=== PATIENT | female | born 1960 | race Caucasian/White ===

== ENCOUNTER 2018-05-13 20:32 | Emergency (ER) | payer MEDICAID ==
--- NOTE | 2018-05-13 21:52 | EDM.PDOC ---
ED HPI GENERAL MEDICAL PROBLEM - General Chief Complaint: Lower Extremity Injury/Pain Stated Complaint: HAS INFECTION/LT KNEE IS SWELLING & SOB Time Seen by Provider: 05/13/18 21:54 Source of Information: Reports: Patient History Limitations: Reports: No Limitations - History of Present Illness INITIAL COMMENTS - FREE TEXT/NARRATIVE: pt arrived with a history of a facial infection. She had a ja stud which screwed into a titanium plate. Onset: Gradual, Other ( last 3-4 days. ) Duration: Hour(s): Location: Reports: Face, Lower Extremity, Left, Generalized Associated Symptoms: Reports: Headaches Treatments SALAD MAKER: Reports: NSAIDS, Other (see below) Other Treatments SALAD MAKER: Bactrim DS Joints Pain Score (Numeric/FACES): 8 Left Posterior Knee Pain Score (Numeric/FACES): 6 - Related Data Allergies Allergy/AdvReac Type Severity Reaction Status Date / Time No Known Allergies Allergy Verified 05/13/18 21:30 Home Meds: Home Meds Citalopram Hydrobromide [Celexa] 20 mg PO DAILY 05/31/13 [History] Multivitamin [Multivitamins] 1 each PO DAILY 01/21/15 [History] Sulfamethoxazole/Trimethoprim [Bactrim Ds Tablet] 1 each PO DAILY 05/13/18 [ History] Past Medical History - Past Health History Medical/Surgical History: Denies Medical/Surgical History - Past Surgical History Other Musculoskeletal Surgeries/Procedures:: pins and screws right humerous Social & Family History - Tobacco Use Smoking Status *Q: Never Smoker Second Hand Smoke Exposure: No - Caffeine Use Caffeine Use: Reports: Coffee - Recreational Drug Use Recreational Drug Use: No Review of Systems - Review of Systems Review Of Systems: See Below Constitutional: Reports: Chills, Weakness Eyes: Reports: No Symptoms Ears: Reports: No Symptoms Nose: Reports: No Symptoms Mouth/Throat: Reports: No Symptoms, Other ( facial swellin on the left) Respiratory: Reports: No Symptoms Cardiovascular: Reports: No Symptoms GI/Abdominal: Reports: No Symptoms Genitourinary: Reports: No Symptoms Musculoskeletal: Reports: Other ( generalized muscle pain and joint pain with very severe pain in the left knee. ) Skin: Reports: No Symptoms ED EXAM, GENERAL - Physical Exam Exam: See Below Free Text/Narrative:: Pt arrived with pain in the left knee and generalized joint pain. She is not vomiting. She has pain in the facial area. Exam Limited By: No Limitations General Appearance: Alert, Moderate Distress Ears: Normal TMs Ear Exam: Right Ear: Bleeding Nose: Normal Inspection Throat/Mouth: Other ( Left cheek is swollen and red. It is tender. ) Neck: Normal Inspection, Lymphadenopathy (L) Respiratory/Chest: No Respiratory Distress Cardiovascular: Regular Rate, Rhythm GI/Abdominal: Soft, Non-Tender (Female) Exam: Deferred Rectal (Female) Exam: Deferred Back Exam: Normal Inspection Extremities: Other (left knee is swollen and she has a obvious joint effusion. She has no redness present but the knee is painful. She also feels like the rt knee is becoming painful She has not spiked a temp. ) Neurological: Alert, Oriented, Normal Cognition Course - Vital Signs Last Recorded V/S: Last Vital Signs Temp 35.6 C 05/13/18 23:51 Pulse 66 05/13/18 23:51 Resp 12 05/13/18 23:51 BP 115/55 L 05/13/18 23:51 Pulse Ox 98 05/13/18 23:51 - Orders/Labs/Meds Orders: Active Orders 24 hr Category Date Time Status Max Facial Sinus wo Cont [CT] Stat Exams 05/14/18 00:18 Taken Sinus Less 3V [CR] Stat Exams 05/13/18 22:04 Taken VL Duplex Lwr Ext Veins Ltd Lt [US] Stat Exams 05/13/18 21:52 Taken CULTURE BLOOD [BC] Urgent Lab 05/14/18 00:35 Received CULTURE BLOOD [BC] Urgent Lab 05/14/18 00:40 Received Sodium Chloride 0.9% [Normal Saline] 1,000 ml Med 05/13/18 23:30 Active IV ASDIRECTED Sodium Chloride 0.9% [Normal Saline] 1,000 ml Med 05/14/18 01:30 Ordered IV ASDIRECTED Blood Culture x2 Reflex Set [OM.PC] Urgent Oth 05/14/18 00:15 Ordered Medication Orders Sodium Chloride (Normal Saline) 1,000 mls @ 999 mls/hr IV ASDIRECTED MANOHAR Last Admin: 05/13/18 23:39 Dose: 999 mls/hr Sodium Chloride (Normal Saline) 1,000 mls @ 300 mls/hr IV ASDIRECTED [facility] Labs: Laboratory Tests 05/13/18 05/13/18 05/13/18 Range/Units 21:45 21:47 21:47 WBC 5.1 (4.5-11.0) K/uL RBC 4.14 (3.30-5.50) M/uL Hgb 12.4 (12.0-15.0) g/dL Hct 36.6 (36.0-48.0) % MCV 88 (80-98) fL MCH 30 (27-31) pg MCHC 34 (32-36) % Plt Count 217 (150-400) K/uL Neut % (Auto) 84 H (36-66) % Lymph % (Auto) 9 L (24-44) % Mellette % (Auto) 4 (2-6) % Eos % (Auto) 3 (2-4) % Baso % (Auto) 0 (0-1) % D-Dimer, Quantitative 616 H (0.0-400.0) ng/mL Sodium 136 L (140-148) mmol/L Potassium 3.8 (3.6-5.2) mmol/L Chloride 101 (100-108) mmol/L Carbon Dioxide 27 (21-32) mmol/L Anion Gap 11.8 (5.0-14.0) mmol/L BUN 11 (7-18) mg/dL Creatinine 1.1 H D (0.6-1.0) mg/dL Est Cr Clr Drug Dosing 45.55 mL/min Estimated GFR (MDRD) 51 L (>60) Glucose 103 (74-106) mg/dL Calcium 8.3 L (8.5-10.1) mg/dL Total Bilirubin 0.3 (0.2-1.0) mg/dL AST 17 (15-37) U/L ALT 13 (12-78) U/L Alkaline Phosphatase 64 (46-116) U/L C-Reactive Protein 5.60 H (0.0-0.3) mg/dL Total Protein 6.1 L (6.4-8.2) g/dL Albumin 3.3 L (3.4-5.0) g/dL Globulin 2.8 (2.3-3.5) g/dL Albumin/Globulin Ratio 1.2 (1.2-2.2) Urine Color Urine Appearance Urine pH (4.5-8.0) Ur Specific Walton (1.008-1.030) Urine Protein (NEGATIVE) mg/dL Urine Glucose (UA) (NEGATIVE) mg/dL Urine Ketones (NEGATIVE) mg/dL Urine Occult Blood (NEGATIVE) Urine Nitrite (NEGATIVE) Urine Bilirubin (NEGATIVE) Urine Urobilinogen (NORMAL) mg/dL Ur Leukocyte Esterase (NEGATIVE) Urine RBC (0-5) Urine WBC (0-5) Ur Epithelial Cells Amorphous Sediment Urine Bacteria Urine Mucus 05/13/18 Range/Units 23:49 WBC (4.5-11.0) K/uL RBC (3.30-5.50) M/uL Hgb (12.0-15.0) g/dL Hct (36.0-48.0) % MCV (80-98) fL MCH (27-31) pg MCHC (32-36) % Plt Count (150-400) K/uL Neut % (Auto) (36-66) % Lymph % (Auto) (24-44) % Mellette % (Auto) (2-6) % Eos % (Auto) (2-4) % Baso % (Auto) (0-1) % D-Dimer, Quantitative (0.0-400.0) ng/mL Sodium (140-148) mmol/L Potassium (3.6-5.2) mmol/L Chloride (100-108) mmol/L Carbon Dioxide (21-32) mmol/L Anion Gap (5.0-14.0) mmol/L BUN (7-18) mg/dL Creatinine (0.6-1.0) mg/dL Est Cr Clr Drug Dosing mL/min Estimated GFR (MDRD) (>60) Glucose (74-106) mg/dL Calcium (8.5-10.1) mg/dL Total Bilirubin (0.2-1.0) mg/dL AST (15-37) U/L ALT (12-78) U/L Alkaline Phosphatase (46-116) U/L C-Reactive Protein (0.0-0.3) mg/dL Total Protein (6.4-8.2) g/dL Albumin (3.4-5.0) g/dL Globulin (2.3-3.5) g/dL Albumin/Globulin Ratio (1.2-2.2) Urine Color Yellow Urine Appearance Clear Urine pH 8.0 (4.5-8.0) Ur Specific Walton 1.015 (1.008-1.030) Urine Protein Negative (NEGATIVE) mg/dL Urine Glucose (UA) Normal (NEGATIVE) mg/dL Urine Ketones Negative (NEGATIVE) mg/dL Urine Occult Blood Negative (NEGATIVE) Urine Nitrite Negative (NEGATIVE) Urine Bilirubin Negative (NEGATIVE) Urine Urobilinogen Normal (NORMAL) mg/dL Ur Leukocyte Esterase Negative (NEGATIVE) Urine RBC 0-5 (0-5) Urine WBC 0-5 (0-5) Ur Epithelial Cells Rare Amorphous Sediment Not seen Urine Bacteria Few Urine Mucus Not seen Meds: Medications Generic Name Dose Route Start Last Admin Trade Name Freq PRN Reason Stop Dose Admin Sodium Chloride 1,000 mls @ 999 mls/hr 05/13/18 23:30 05/13/18 23:39 Normal Saline IV 999 mls/hr ASDIRECTED MANOHAR Administration Sodium Chloride 1,000 mls @ 300 mls/hr 05/14/18 01:30 Normal Saline IV ASDIRECTED MANOHAR Discontinued Medications Generic Name Dose Route Start Last Admin Trade Name Freq PRN Reason Stop Dose Admin Hydromorphone HCl 0.5 mg 05/14/18 01:12 05/14/18 01:18 Dilaudid IVPUSH 05/14/18 01:13 0.5 mg ONETIME ONE Administration Ceftriaxone Sodium 1 gm/ 50 mls @ 100 mls/hr 05/13/18 23:24 05/13/18 23:41 Sodium Chloride IV 05/13/18 23:53 100 mls/hr ONETIME ONE Administration - Re-Assessments/Exams Free Text/Narrative Re-Assessment/Exam: 05/14/18 01:33 us of the left leg was obtained which was neg except for the joint effusion. She had a cat scan of the facial area which reveals the titsnium plate present with some swelling around it but no abcess. She had a crp which was greater than 5/ She has no rash. Her wbc is normal. Her creatnine is mildly elevated. r Departure - Departure Time of Disposition: 01:35 Disposition: DC/Tfer to Acute Hospital 02 Condition: Fair Clinical Impression: Cellulitis of face, Foreign body, Joint effusion of knee, CRP elevated - Discharge Information Referrals: Sabra Sloan PA [Primary Care Provider] - Forms: ED Department Discharge Care Plan Goals: transfer to [facility]. - My Orders Last 24 Hours: My Active Orders 05/13/18 21:52 VL Duplex Lwr Ext Veins Ltd Lt [US] Stat 05/13/18 22:04 Sinus Less 3V [CR] Stat 05/13/18 23:30 Sodium Chloride 0.9% [Normal Saline] 1,000 ml IV ASDIRECTED 05/14/18 00:15 Blood Culture x2 Reflex Set [OM.PC] Urgent 05/14/18 00:18 Max Facial Sinus wo Cont [CT] Stat 05/14/18 00:35 CULTURE BLOOD [BC] Urgent 05/14/18 00:40 CULTURE BLOOD [BC] Urgent 05/14/18 01:30 Sodium Chloride 0.9% [Normal Saline] 1,000 ml IV ASDIRECTED - Assessment/Plan Last 24 Hours: My Active Orders 05/13/18 21:52 VL Duplex Lwr Ext Veins Ltd Lt [US] Stat 05/13/18 22:04 Sinus Less 3V [CR] Stat 05/13/18 23:30 Sodium Chloride 0.9% [Normal Saline] 1,000 ml IV ASDIRECTED 05/14/18 00:15 Blood Culture x2 Reflex Set [OM.PC] Urgent 05/14/18 00:18 Max Facial Sinus wo Cont [CT] Stat 05/14/18 00:35 CULTURE BLOOD [BC] Urgent 05/14/18 00:40 CULTURE BLOOD [BC] Urgent 05/14/18 01:30 Sodium Chloride 0.9% [Normal Saline] 1,000 ml IV ASDIRECTED
[2018-05-13] MEDS ORDERED: cefTRIAXone 1 GM in Sodium Chloride 0.9% 50 ML IV ONE (23:24)
[2018-05-13] MEDS ORDERED: Sodium Chloride 0.9% 1,000 ML IV SCH (23:30)
[2018-05-14] MEDS ORDERED: HYDROmorphone 0.5 MG/0.5 ML Syringe IVPUSH ONE (01:12)
[2018-05-14] MEDS ORDERED: Sodium Chloride 0.9% 1,000 ML IV SCH (01:30)
[2018-05-14] MEDS ORDERED: Ondansetron 4 MG/2 ML SDV IVPUSH ONE (01:54)
--- NOTE | 2018-05-14 08:58 | CR ---
Sinus Less 3V CLINICAL HISTORY: Left facial infection FINDINGS: The paranasal sinuses are clear. No bony deformity identified IMPRESSION: Negative
--- NOTE | 2018-05-14 09:00 | US ---
VL Duplex Lwr Ext Veins Ltd Lt INDICATION: pain in the rt leg. FINDINGS: Ultrasound examination of the lower extremity using Doppler and compressive technique demon strates that the common femoral, femoral, and popliteal veins are patent, and negative for thrombus. The calf veins were segmentally visualized and are negative where seen. There is fluid on the lateral aspect of the knee. This likely represents joint effusion IMPRESSION: Negative for deep venous thrombosis. Left knee effusion
[2018-05-15 09:52] VITALS: BP 103/70
== END 2018-05-14 02:17 ==
LOC: JP.ED 20:32
DX: L03.211 Cellulitis of face (principal); M25.462 Effusion, left knee; M79.5 Residual foreign body in soft tissue; R79.82 Elevated C-reactive protein (CRP)
CPT/HCPCS: 36415; 70210; 70486; 80053; 81001; 85025; 85379; 86140; 87040; 93971; 96361; 96365; 96375; 99285; J0696; J1170; J2405; J7030; J7050